=== PATIENT | female | born 2005 | race Two or more races ===

== ENCOUNTER 2024-07-04 01:33 | Emergency (ER) | payer OTHER ==
[~2024-07-04] VITALS: Ht 160 cm; Wt 54.4 kg
[2024-07-04] MEDS ORDERED: ZOLOFT20 MG/1 ML PO (01:46)
[2024-07-04] MEDS ORDERED: DIPHENHYDRAMINE HCL 50 MG/ML VIAL 1ML ONE (02:43)
[2024-07-04] MEDS ORDERED: DIPHENHYDRAMINE HCL 50 MG/ML VIAL 1ML IV ONE (02:45)
== END 2024-07-04 04:55 | disposition home or self-care (01) ==
LOC: ER 01:33
DX: F12.120 Cannabis abuse with intoxication, uncomplicated (principal); R53.81 Other malaise